=== PATIENT | female | born 1960 | race Caucasian/White ===

== ENCOUNTER 2022-04-16 11:54 | Day surgery (SDC) | payer BC ==
[2022-04-15 15:55] VITALS: BMI 21.9
[2022-04-16] MEDS ORDERED: SCOPOLAMINE HYDROBROMIDE 1 PATCH PATCH.TD72 ONE (14:15)
[2022-04-16] MEDS ORDERED: GENTAMICIN SO4 80 MG/2 ML VIAL ONE (14:30)
[2022-04-16] MEDS ORDERED: ceFAZolin SODIUM 1 GM VIAL ONE ×2 (14:30→15:16)
[2022-04-16] MEDS ORDERED: BUPIVACAINE HCL/PF 2.5 MG/ML - 30 ML VIAL IJ ONE (14:30)
[2022-04-16] MEDS ORDERED: GUM MASTIC/STORAX/MSAL/ALCOHOL 1 DRP DROPSBTL MC ONE (14:31)
[2022-04-16] MEDS ORDERED: MIDAZOLAM HCL 2 MG/2 ML SINGLE DOSE VIAL ONE ×2 (14:34→14:37)
[2022-04-16] MEDS ORDERED: PROPOFOL 40 ML ONE (14:37)
[2022-04-16] MEDS ORDERED: DEXAMETHASONE SOD PHOSPHATE 4 MG/1 ML VIAL ONE (15:16)
[2022-04-16] MEDS ORDERED: KETOROLAC TROMETHAMINE 30 MG/1 ML VIAL ONE (15:16)
[2022-04-16] MEDS ORDERED: ONDANSETRON 4 MG/2 ML VIAL ONE ×2 (15:16→15:50)
[2022-04-16] MEDS ORDERED: FENTANYL CITRATE/PF 50 MCG/ML VIAL ONE ×2 (15:50→15:58)
[2022-04-16] MEDS ORDERED: oxyCODONE HCL 5 MG TABLET ONE (16:23)
[2022-04-16 17:16] VITALS: PULSE 75; RESP 16; TEMP 97.9
[2022-04-16 17:21] VITALS: BP 116/71
[2022-04-16] MEDS ORDERED: ONDANSETRON 4 MG/2 ML VIAL IVPUSH PRN (17:22)
[2022-04-16] MEDS ORDERED: oxyCODONE HCL 5 MG TABLET PO PRN (17:22)
[2022-04-16] MEDS ORDERED: LACTATED RINGERS SOLUTION 1,000 ML IV SCH (17:30)
== END 2022-04-16 17:15 | disposition home or self-care (01) ==
LOC: FASU 11:54
PROVIDERS: ATTEND Surgery Plastic and Reconstructive Surgery
PROC: 0HB5XZZ Excision of Chest Skin, External Approach (ICD-10-PCS; 2022-04-16)
PROC: 0HRU37Z Replacement of Left Breast with Autologous Tissue Substitute, Percutaneous Approach (ICD-10-PCS; principal; 2022-04-16 14:53)
DX: Z85.3 Personal history of malignant neoplasm of breast (principal); Z90.12 Acquired absence of left breast and nipple; N64.1 Fat necrosis of breast
CPT/HCPCS: 88304-TC; 94760; C9803-CS; U0003; U0005